=== PATIENT | female | born 1960 | race Caucasian/White ===

== ENCOUNTER 2017-09-24 08:31 | Inpatient (IN) | payer OTHER ==
[2017-09-21 11:46] VITALS: BMI 30.5
[2017-09-24] MEDS ORDERED: CEFAZOLIN 2 GM in DEXTROSE 5%-WATER - 100 ML IVPB ONE (08:55)
[2017-09-24] MEDS ORDERED: oxyCODONE HCL 10 MG SUSTAINED ACTING TABLET PO STA (08:55)
[2017-09-24] MEDS ORDERED: MIDAZOLAM HCL 2 MG/2 ML SINGLE DOSE VIAL ONE (10:01)
[2017-09-24] MEDS ORDERED: BUPIVACAINE HCL/PF 2.5 MG/ML - 30 ML VIAL IJ ONE (10:03)
[2017-09-24] MEDS ORDERED: GUM MASTIC/STORAX/MSAL/ALCOHOL 1 DRP DROPSBTL MC ONE (10:27)
[2017-09-24] MEDS ORDERED: LIDOCAINE 1%/EPI 1:100000 (20 ML MULTI DOSE VIAL) ONE (10:28)
[2017-09-24] MEDS ORDERED: THROMBIN (BOVINE) 5,000 UNIT VIAL TP ONE (10:28)
--- NOTE | 2017-09-24 10:55 | HP ---
History & Physical Update - History History: No Change - Physical Physical: No Change - Assessment Assessment: No Change - Plan Plan: No Change (Initial H&P is in patient's paper chart)
[2017-09-24] MEDS ORDERED: ceFAZolin SODIUM 1 GM VIAL ONE ×2 (11:48→12:01)
[2017-09-24] MEDS ORDERED: SODIUM CHLORIDE 0.9% P/F 10 ML VIAL IJ ONE (11:48)
[2017-09-24] MEDS ORDERED: ONDANSETRON 4 MG/2 ML VIAL IVPUSH PRN (12:09)
[2017-09-24] MEDS ORDERED: LACTATED RINGERS SOLUTION 1,000 ML IV SCH ×2 (12:15→14:00)
--- NOTE | 2017-09-24 13:53 | OP ---
Operative Note - Note: Operative Date: 09/24/17 Pre-Operative Diagnosis: L4/5 Spondylolithesis Operation: Transforaminal lumbar interbody fusion/decompression/instrumentation L4/5, allograft implant, neuromonitoring Post-Operative Diagnosis: Same as Pre-op Surgeon: Jamal Pablo X Ray Operator: Toan Andujar Anesthesiologist/LEG MAN: Mandy Shaver (TLIP) Anesthesia: Spinal Estimated Blood Loss (mls): 30 Fluid Volume Replaced (mls): 750 Operative Report Dictated: Yes
[2017-09-24] MEDS ORDERED: oxyCODONE HCL 5 MG TABLET PO PRN (13:54)
--- NOTE | 2017-09-24 13:54 | SURG ---
Surgery Mileage Clerk Note Mileage Clerk: Toan Andujar PA-C Date of Service: 09/24/17 Diagnosis: L4/5 spondylolithesis with radiculopathy Procedure: Transforaminal lumbar interbody fusion/decompression/instrumentation L4/5, allograft implant, neuromonitoring I was present for the entirety of the operative procedure. For further detail, please refer to operative report. Visit type - Case Type Case Type: Scheduled Admission - New patient This patient is new to me today: Yes Date on this admission: 09/24/17
[2017-09-24] MEDS ORDERED: traMADol HCL 50 MG TABLET ONE (17:09)
[2017-09-24] MEDS ORDERED: CEFAZOLIN 1 GM/D5W 1 GM/50 ML BAG ONE (17:09)
[2017-09-24] MEDS: traMADol HCL 50 MG TABLET PO SCH ×2 (17:15→23:54)
[2017-09-24] MEDS ORDERED: oxyCODONE HCL 5 MG TABLET ONE (17:52)
[2017-09-24] MEDS: oxyCODONE HCL 5 MG TABLET PO PRN ×2 (17:55→22:13)
[2017-09-24] MEDS ORDERED: KETOROLAC TROMETHAMINE 30 MG/1 ML VIAL ONE (18:48)
[2017-09-24] MEDS ORDERED: CYCLOBENZAPRINE HCL 10 MG TABLET (FP) PO ONE (18:50)
[2017-09-24] MEDS ORDERED: KETOROLAC TROMETHAMINE 30 MG/1 ML VIAL IVPUSH ONE (18:55)
[2017-09-24] MEDS: CEFAZOLIN 1 GM/D5W 1 GM/50 ML BAG IVPB SCH (20:01)
[2017-09-24] MEDS ORDERED: diazePAM 2 MG TABLET PO SCH (22:00)
[2017-09-25] MEDS: oxyCODONE HCL 5 MG TABLET PO PRN ×2 (02:24→06:31)
[2017-09-25] MEDS: CEFAZOLIN 1 GM/D5W 1 GM/50 ML BAG IVPB SCH (02:24)
[2017-09-25 06:13] VITALS: BP 127/70; PULSE 66; TEMP 98
[2017-09-25] MEDS: traMADol HCL 50 MG TABLET PO SCH (06:28)
[2017-09-25 08:20] LABS: HEMATOCRIT 38.7 % (32.4-45.2); HEMOGLOBIN 13.2 GM/dl (10.7-15.3); MCH 31.2 pg (25.7-33.7); MCHC 34.2 g/dl (32.0-36.0); MEAN CELL VOLUME 91.1 fl (80-96); PLATELET COUNT 246 K/MM3 (134-434); RBC 4.25 M/mm3 (3.60-5.2); RDW 12.1 % (11.6-15.6); WHITE BLOOD COUNT 9.8 K/mm3 (4.0-10.8)
[2017-09-25 08:29] LABS: ANION GAP 6 (8-16); BLOOD UREA NITROGEN 25 mg/dl (7-18); CALCIUM 9.1 mg/dl (8.4-10.2); CHLORIDE 100 mmol/L (98-107); CO2 26 mmol/L (22-28); CREATININE 0.9 mg/dl (0.6-1.3); GLUCOSE,RANDOM 103 mg/dl (74-106); POTASSIUM 4.6 mmol/L (3.5-5.1); SODIUM 132 mmol/L (136-145)
--- NOTE | 2017-09-25 11:08 | DS ---
Physical Exam: SUBJECTIVE: Patient seen and examined at bedside (7:30am) POD #1 L3-L4 fusion. Patient states her pain is controlled with oral meds and she has been out of bed ambulating to bathroom without limitation. She denies any radicular symptoms or paresthesias in B/L LE. She denies any c/p, SOB, N/V/D fever or chills, She is prepared to go home today and comfortable with the discharge plan. OBJECTIVE: Vital Signs Temperature 98.0 F 09/25/17 05:00 Pulse Rate 66 09/25/17 05:00 Respiratory Rate 20 09/25/17 05:00 Blood Pressure 127/70 09/25/17 05:00 O2 Sat by Pulse Oximetry (%) 97 09/25/17 06:11 PHYSICAL EXAM GENERAL: The patient is awake, alert, and fully oriented, in no acute distress. HEAD: Normal with no signs of trauma. EYES: sclera anicteric, conjunctiva clear. ENT: Ears normal, nares patent, NECK: Trachea midline, full range of motion, supple. LUNGS: unlabored resp on RA, no accessory muscle use. Incisions c/d/i with steris in place, no evidence of d/c or tracking erythema. redressed with 4x4 and op site EXTREMITIES: 2+ pulses, warm, well-perfused, no edema, 5/5 strength, compartments soft, supple and non-tender to palpation. NEUROLOGICAL: Cranial nerves II through XII grossly intact. Normal speech PSYCH: Normal mood, normal affect. SKIN: Warm, dry, normal turgor, no rashes or lesions noted. LABS CBC,CMP WBC 9.8 K/mm3 (4.0-10.8) 09/25/17 07:30 RBC 4.25 M/mm3 (3.60-5.2) 09/25/17 07:30 Hgb 13.2 GM/dl (10.7-15.3) 09/25/17 07:30 Hct 38.7 % (32.4-45.2) 09/25/17 07:30 MCV 91.1 fl (80-96) 09/25/17 07:30 MCH 31.2 pg (25.7-33.7) 09/25/17 07:30 MCHC 34.2 g/dl (32.0-36.0) 09/25/17 07:30 RDW 12.1 % (11.6-15.6) 09/25/17 07:30 Plt Count 246 K/MM3 (134-434) 09/25/17 07:30 MPV 9.0 fl (7.5-11.1) 09/25/17 07:30 Sodium 132 mmol/L (136-145) L 09/25/17 07:30 Potassium 4.6 mmol/L (3.5-5.1) 09/25/17 07:30 Chloride 100 mmol/L (98-107) 09/25/17 07:30 Carbon Dioxide 26 mmol/L (22-28) 09/25/17 07:30 Anion Gap 6 (8-16) L 09/25/17 07:30 BUN 25 mg/dl (7-18) H 09/25/17 07:30 Creatinine 0.9 mg/dl (0.6-1.3) 09/25/17 07:30 Random Glucose 103 mg/dl (74-106) 09/25/17 07:30 Calcium 9.1 mg/dl (8.4-10.2) 09/25/17 07:30 HOSPITAL COURSE: normal Date of Admission:09/24/17 Date of Discharge: 09/25/17 The patient was admitted to the Med-Surg Unit after an elective spinal stenosis. Now, s/p L3-L4 lumbar fusion. The day of surgery, the patient ambulated the hallways with assistance. Narcotic and non-narcotic pain management control was achieved with an oral and IV approach. An xray was obtained and confirmed hardware placement at (level of ), no fractures or dislocations. Maryanne-operative IV ABX were administered. DVT prophylaxis was achieved with SCDs and early ambulation. The patient ambulated with Physical Therapy and no services were recommended upon discharge. Narcotic scripts and or muscle relaxants were checked with [facility] [employer] prior to escibe. The discharge instructions and an oral pain management plan were reviewed with the patient. All questions answered. Above plan discussed with Dr. Pablo and agreed. Minutes to complete discharge: 10 <Joann Salinas - Last Filed: 09/25/17 11:08> Physical Exam: SUBJECTIVE: Patient seen and examined OBJECTIVE: Vital Signs Temperature 98.0 F 09/25/17 05:00 Pulse Rate 66 09/25/17 05:00 Respiratory Rate 20 09/25/17 09:00 Blood Pressure 127/70 09/25/17 05:00 O2 Sat by Pulse Oximetry (%) 97 09/25/17 09:00 PHYSICAL EXAM GENERAL: The patient is awake, alert, and fully oriented, in no acute distress. HEAD: Normal with no signs of trauma. EYES: PERRL, extraocular movements intact, sclera anicteric, conjunctiva clear. ENT: Ears normal, nares patent, oropharynx clear without exudates, moist mucous membranes. NECK: Trachea midline, full range of motion, supple. LUNGS: Breath sounds equal, clear to auscultation bilaterally, no wheezes, no crackles, no accessory muscle use. HEART: Regular rate and rhythm, S1, S2 without murmur, rub or gallop. ABDOMEN: Soft, nontender, nondistended, normoactive bowel sounds, no guarding, no rebound, no hepatosplenomegaly, no masses. EXTREMITIES: 2+ pulses, warm, well-perfused, no edema. NEUROLOGICAL: Cranial nerves II through XII grossly intact. Normal speech, gait not observed. PSYCH: Normal mood, normal affect. SKIN: Warm, dry, normal turgor, no rashes or lesions noted. LABS CBC,CMP WBC 9.8 K/mm3 (4.0-10.8) 09/25/17 07:30 RBC 4.25 M/mm3 (3.60-5.2) 09/25/17 07:30 Hgb 13.2 GM/dl (10.7-15.3) 09/25/17 07:30 Hct 38.7 % (32.4-45.2) 09/25/17 07:30 MCV 91.1 fl (80-96) 09/25/17 07:30 MCH 31.2 pg (25.7-33.7) 09/25/17 07:30 MCHC 34.2 g/dl (32.0-36.0) 09/25/17 07:30 RDW 12.1 % (11.6-15.6) 09/25/17 07:30 Plt Count 246 K/MM3 (134-434) 09/25/17 07:30 MPV 9.0 fl (7.5-11.1) 09/25/17 07:30 Sodium 132 mmol/L (136-145) L 09/25/17 07:30 Potassium 4.6 mmol/L (3.5-5.1) 09/25/17 07:30 Chloride 100 mmol/L (98-107) 09/25/17 07:30 Carbon Dioxide 26 mmol/L (22-28) 09/25/17 07:30 Anion Gap 6 (8-16) L 09/25/17 07:30 BUN 25 mg/dl (7-18) H 09/25/17 07:30 Creatinine 0.9 mg/dl (0.6-1.3) 09/25/17 07:30 Random Glucose 103 mg/dl (74-106) 09/25/17 07:30 Calcium 9.1 mg/dl (8.4-10.2) 09/25/17 07:30 HOSPITAL COURSE: Date of Admission:09/24/17 Date of Discharge: 10/08/17 The patient was admitted to the Med-Surg Unit after an elective repair of their L4-5 spondylolisthesis. The day of surgery, the patient ambulated the hallways with assistance. Narcotic and non-narcotic pain management control was achieved with an oral and IV approach. POD #1, the surgical drain was removed fully intact and without incident. An xray was obtained and confirmed hardware placement at L4-5, no fractures or dislocations. Maryanne-operative IV ABX were administered. DVT prophylaxis was achieved with SCDs and early ambulation. The patient ambulated with Physical Therapy and no services were recommended upon discharge. Narcotic scripts and or muscle relaxants were checked with [facility] [employer] prior to escibe. The discharge instructions and an oral pain management plan were reviewed with the patient. All questions answered. Above plan discussed with Dr. Pablo and agreed. Patient seen and examined Agree with above D/C Planning <Jmaal Pablo - Last Filed: 10/08/17 11:34> Visit type - Case Type Case Type: Scheduled Admission <Joann Salinas - Last Filed: 09/25/17 11:08>
--- NOTE | 2017-09-25 11:30 | OP ---
DATE OF OPERATION: 09/24/2017 PREOPERATIVE DIAGNOSES: 1. Spinal stenosis, L4-5. 2. Spondylolisthesis. POSTOPERATIVE DIAGNOSES: 1. Spinal stenosis, L4-5. 2. Spondylolisthesis. PROCEDURE PERFORMED: 1. Transforaminal lumbar interbody fusion, L4-5. 2. Placement of prosthetic cage. 3. Hemilaminectomy. 4. Placement of instrumentation. SURGEON: Jamal Pablo MD SHACTOR HELPER: LOVE Le ESTIMATED BLOOD LOSS: 50 mL. IV FLUIDS: Per Anesthesia. ANESTHESIA: Spinal/TLIP block. COMPLICATIONS: There were none. DISPOSITION: Patient brought to the PACU in stable condition. INDICATIONS FOR SURGERY: The patient is a 56-year-old female who has been suffering from pain from her back down her leg. X-rays and MRI were completed which noted she had spinal stenosis at L4-5 secondary to a spondylolisthesis. She had gone through an exhaustive course of treatment for this which included medications, physical therapy as well as injections. Unfortunately, pain continued to persist despite all this. At this point, risks, benefits and alternatives were discussed and the patient consented to surgery. OPERATIVE NOTE: Patient was brought to the operating room by the anesthesia staff. After appropriate patient identification was performed, spinal anesthesia was given. A TLIP block was given. Patient was able to position herself prone on to the Sp frame with all areas of bony prominences well padded. At this time, the C-arm was brought in. The L4-L5 pedicles were marked off. Lidocaine with epinephrine 10 mL was injected into her back at which time her back was prepped and draped in a sterile manner. At this point, a timeout was completed. Incisions were made bilaterally over the L4-L5 pedicles. Dissection was carried down to the fascia. Fascia was then split at this time. Under C-arm guidance, trocars were advanced into both the L4 and L5 pedicles. Position of trocar wires was performed. A tap was performed and screws inserted on the right-hand side. Retractor blades were set up to expose the L4- 5 facet joint. This was confirmed with x-ray. The facet joint was removed with an osteotome and bur. The disk was visualized. It was entered. Using a series of pituitaries, Kerrisons and curets, a diskectomy was completed. Bone graft was laid down and cage was measured and filled in. Tulip heads were placed over the screws. The bruna was measured and placed. Caps were placed on. Compression and final tightening were performed. On the left-hand side, a bruna was measured and placed in. Caps were placed on. Compression and final tightening were performed. All extra instrumentation was removed at this time. AP and lateral x-rays confirmed the instrumentation to be in good position. The fascia was closed with a No. 1 Vicryl suture, subcutaneous tissues closed with 2-0 Vicryl suture, skin was closed with 3-0 Monocryl suture. Dermabond was applied. Steri-Strips were applied. A sterile dressing was applied. The patient was placed supine on her bed and brought to the PACU in stable condition. Karissa ARBOLEDA/[id number] MTDD
== END 2017-09-25 09:30 | disposition home or self-care (01) | DRG 460 ==
LOC: FM/S 08:31
PROVIDERS: ADMIT Orthopaedic Surgery Orthopaedic Surgery of the Spine; ATTEND Orthopaedic Surgery Orthopaedic Surgery of the Spine
PROC: 0SB20ZZ Excision of Lumbar Vertebral Disc, Open Approach (ICD-10-PCS; 2017-09-24)
PROC: 0SG00AJ Fusion of Lumbar Vertebral Joint with Interbody Fusion Device, Posterior Approach, Anterior Column, Open Approach (ICD-10-PCS; principal; 2017-09-24 11:35)
DX: M43.16 Spondylolisthesis, lumbar region (principal); M54.16 Radiculopathy, lumbar region; M48.061 Spinal stenosis, lumbar region without neurogenic claudication
CPT/HCPCS: 36415; 72100-TC; 76000-TC; 80048; 85027; 94760